=== PATIENT | male | born 1990 | race Caucasian/White ===

== ENCOUNTER 2024-12-30 23:23 | Emergency (ER) | payer OTHER ==
[~2024-12-30] VITALS: Ht 172.7 cm; Wt 93.0 kg
[2024-12-30 23:28] VITALS: O2SAT 100
[2024-12-31] MEDS: LIDOCAINE HCL/PF 1% 10 MG/ML 5ML VIAL INFIL ONE (00:30)
[2024-12-31] MEDS: BACITRACIN ZINC OINT UDPKT TOP ONE (00:30)
[2024-12-31] MEDS: TETANUS, DIPHTHERIA, PERTUSSIS VAC/PF 0.5ML (>10YR OLD) IM ONE (01:55)
[2024-12-31 03:32] VITALS: BP 137/95; PULSE 70; RESP 20; TEMP 36.6; O2SAT 100
== END 2024-12-31 03:41 | disposition home or self-care (01) ==
LOC: ER 23:23
DX: S61.011A Laceration without foreign body of right thumb without damage to nail, initial encounter (principal); E78.00 Pure hypercholesterolemia, unspecified; I10 Essential (primary) hypertension; Z79.899 Other long term (current) drug therapy; W26.0XXA Contact with knife, initial encounter; Y93.89 Activity, other specified; Y92.89 Other specified places as the place of occurrence of the external cause; Y99.8 Other external cause status
CPT/HCPCS: 99283; 12001; 90715; 90471; J2003